=== PATIENT | female | born 1970 | race Caucasian/White ===

== ENCOUNTER 2023-07-12 08:00 | Outpatient (CLI) | payer OTHER ==
--- NOTE | 2023-07-12 11:11 | XRAY Report ---
PROCEDURE: Wrist 3+V RT INDICATIONS: PAIN IN RIGHT WRIST TECHNIQUE: 3 views of the wrist were acquired. COMPARISON: None. FINDINGS: Bones: No acute fractures or dislocations. No suspicious bony lesions. Orthopedic sideplate with screws of the distal radius is noted. Old fracture of the ulnar styloid is noted. Narrowing of the ra diocarpal joint. Soft tissues: No suspicious soft tissue calcifications or masses. IMPRESSION: 1. Narrowing of the radiocarpal joint 2. Old fractures of the distal radius and ulna with orthopedic sideplate with screws present in the d istal radius. Reviewed by: Barrington Callahan MD on 07/12/2023 11:09 AM PST Approved by: Barrington Callahan MD on 07/12/2023 11:09 AM PST Station ID: [id number]
--- NOTE | 2023-07-12 11:19 | XRAY Report ---
PROCEDURE: Ribs w/PA Chest 3+V RT INDICATIONS: RIGHT SIDED RIB PAIN TECHNIQUE: 2 views of the ribs were acquired, along with a single view chest. COMPARISON: None. FINDINGS: Surgical changes and devices: None. Bones and chest wall: No rib fracture seen. Overlying soft tissues appear unremarkable. Lungs and pleura: No pleural effusions or pneumothorax. Lungs appear clear. Mediastinum: Mediastinal contours appear normal. Heart size is normal. IMPRESSION: No displaced rib fracture or pneumothorax. Reviewed by: Barrington Callahan MD on 07/12/2023 11:17 AM PST Approved by: Barrington Callahan MD on 07/12/2023 11:17 AM PST Station ID: [id number]
== END 2023-07-12 23:59 | disposition home or self-care (01) ==
LOC: DI.S 08:00
PROVIDERS: ATTEND Registered Nurse
DX: M25.531 Pain in right wrist (principal); R07.81 Pleurodynia; S52.501D Unspecified fracture of the lower end of right radius, subsequent encounter for closed fracture with routine healing; S52.601D Unspecified fracture of lower end of right ulna, subsequent encounter for closed fracture with routine healing

== ENCOUNTER 2023-08-23 10:23 | Outpatient (CLI) | payer OTHER ==
[2023-08-23 15:09] LABS: BASOPHILS # (AUTO) 0.1 10^3/uL (0.0-0.1); BASOPHILS % (AUTO) 0.7 %; EOSINOPHILS # (AUTO) 0.1 10^3/uL (0.0-0.7); EOSINOPHILS % (AUTO) 1.5 %; HCT - HEMATOCRIT 41.9 % (37.0-47.0); HGB - HEMOGLOBIN 13.6 g/dL (12.0-16.0); LYMPHOCYTES # (AUTO) 2.6 10^3/uL (1.5-3.5); LYMPHOCYTES % (AUTO) 28.1 %; MEAN CORPUSCULAR HEMOGLOBIN 29.6 pg (27.0-31.0); MEAN CORPUSCULAR HGB CONC 32.5 g/dL (32.0-36.0); MEAN CORPUSCULAR VOLUME 91.3 fL (81.0-99.0); MEAN PLATELET VOLUME 10.5 fL (7.9-10.8); MONOCYTES # (AUTO) 0.5 10^3/uL (0.0-1.0); MONOCYTES % (AUTO) 5.9 %; NEUTROPHILS # (AUTO) 5.8 10^3/uL (1.5-6.6); NEUTROPHILS % (AUTO) 63.1 %; PLT - PLATELET COUNT 338 10^3/uL (130-450); RED BLOOD COUNT 4.59 10^6/uL (4.20-5.40); RED CELL DISTRIBUTION WIDTH 13.8 % (12.0-15.0); WHITE BLOOD COUNT 9.2 x10^3/uL (4.8-10.8)
[2023-08-23 17:03] LABS: % IRON SATURATION 22 % (20-50); ALBUMIN 4.3 g/dL (3.2-5.5); ALBUMIN/GLOBULIN RATIO 1.5 (1.0-2.2); ALKALINE PHOSPHATASE 66 IU/L (42-121); ALT ALANINE AMINOTRANSFERASE 29 IU/L (10-60); AST ASPARTATE AMINOTRANSFERASE 16 IU/L (10-42); BILIRUBIN,TOTAL 0.3 mg/dL (0.2-1.0); BUN - BLOOD UREA NITROGEN 16 mg/dL (6-20); CALCIUM 9.4 mg/dL (8.5-10.3); CARBON DIOXIDE - CO2 25 mmol/L (21-32); CHLORIDE 107 mmol/L (101-111); CHOL/HDL RATIO 5.9 (<4.4); CHOLESTEROL 207 mg/dL; CREATININE 0.6 mg/dL (0.6-1.3); CRP HIGH SENSITIVITY 7.46 mg/L; GFR - MDRD 105 (>89); GLUCOSE 175 mg/dL (74-104); HDL CHOLESTEROL 35 mg/dL; IRON 77 ug/dL (50-212); LDL CHOLESTEROL,CALCULATED 131 mg/dL; LDL/HDL RATIO 3.7 (<4.4); SODIUM 139 mmol/L (135-145); TOTAL IRON BINDING CAPACITY 349 ug/dL (250-450); TOTAL PROTEIN 7.1 g/dL (6.4-8.9); TRANSFERRIN 249 mg/dL (203-362); TRIGLYCERIDES 204 mg/dL (48-352); VLDL CHOLESTEROL 41 mg/dL
[2023-08-23 17:05] LABS: THYROID STIMULATING HORMONE 1.85 uIU/mL (0.34-5.60)
[2023-08-23 17:13] LABS: FERRITIN 120.9 ng/mL (11.0-306.8)
[2023-08-23 17:30] LABS: ESTIMATED AVERAGE GLUCOSE 192 mg/dL (70-100); HEMOGLOBIN A1c% 8.3 % (4.27-6.07)
[2023-08-24 08:10] LABS: DHEA-SULFATE 44.9 ug/dL (41.2-243.7); ESTRADIOL <5.0 pg/mL (.); PROGESTERONE 0.2 ng/mL (.); THYROID PEROXIDASE (TPO) AB <9 IU/mL (0-34)
== END 2023-08-23 10:24 | disposition home or self-care (01) ==
LOC: LAB.S 10:23
DX: E78.00 Pure hypercholesterolemia, unspecified (principal); R73.03 Prediabetes; R53.83 Other fatigue; F51.9 Sleep disorder not due to a substance or known physiological condition, unspecified
CPT/HCPCS: 36415; 80053; 80061; 82607; 82627; 82670; 82728; 82746; 83036; 83540; 83721; 84144; 84402; 84403; 84439; 84443; 84466; 84480; 84481; 85025; 86141; 86376